=== PATIENT | female | born 2000 | race Two or more races ===

== ENCOUNTER → 2023-09-18 | Outpatient (REF) | payer OTHER | LOC: M SFHCDERM 15:00 | PROVIDERS: ATTEND Physician Assistant | DX: L70.0 Acne vulgaris (principal); Z53.9 Procedure and treatment not carried out, unspecified reason ==

== ENCOUNTER → 2023-10-18 | Outpatient (REF) | payer OTHER | LOC: M SFHCDERM 15:45 | PROVIDERS: ATTEND Physician Assistant | DX: Z53.9 Procedure and treatment not carried out, unspecified reason (principal) ==

== ENCOUNTER → 2023-11-15 | Outpatient (REF) | payer OTHER | LOC: M SFHCDERM 16:02 | PROVIDERS: ATTEND Physician Assistant | DX: L70.0 Acne vulgaris (principal) ==